=== PATIENT | female | born 1945 | race Caucasian/White ===

== ENCOUNTER 2020-07-30 09:12 | Emergency (ER) | payer MEDICARE ==
[~2020-07-30] VITALS: Ht 152.4 cm; Wt 79.4 kg
[2020-07-30 09:53] VITALS: BP 128/71
[2020-07-30 10:59] LABS: Basophils # (auto) 0.1 10 ^3/uL (0-0.2); Basophils % (auto) 0.6 % (0.0-2.0); Eosinophils # (auto) 0.1 10 ^3/uL (0-0.8); Eosinophils % (auto) 1.5 % (0.0-7.0); Hematocrit 42.9 % (36.0-46.0); Lymphocytes # (auto) 2.2 10 ^3/uL (0.4-5.4); Lymphocytes % (auto) 26.1 % (10.0-50.0); Mean Corpuscular Hemoglobin 29.9 pg (28.0-32.0); Mean Corpuscular Hgb Conc. 32.6 g/dL (32.0-36.0); Mean Corpuscular Volume 91.5 fL (80.0-100.0); Monocytes # (auto) 0.7 10 ^3/uL (0-1.3); Monocytes % (auto) 8.3 % (0.0-12.0); Neutrophils # (auto) 5.3 10 ^3/uL (1.6-8.6); Neutrophils % (auto) 63.5 % (37.0-80.0); Nucleated Red Blood Cells % 0.1 %; Platelet Count (auto) 292 10^3/uL (140-450); Red Blood Cells 4.68 10^6/uL (4.0-5.20); Red Cell Distribution Width 13.8 % (11.8-14.3); White Blood Cell 8.3 10^3/uL (4.4-10.8)
[2020-07-30 11:12] LABS: Calcium 9.4 mg/dL (8.5-10.1); Potassium 3.8 mmol/L (3.5-5.1)
[2020-07-30 11:15] LABS: BUN/Creatinine Ratio 17.2; Bilirubin, Total 0.3 mg/dL (0.2-1.0); Total Protein 6.9 g/dL (6.4-8.2)
[2020-07-30] MEDS ORDERED: NOREPINEPHRINE 8 MG/250ML KIT 250 ML IV ONE (15:14)
== END 2020-07-30 12:34 | disposition home or self-care (01) ==
LOC: ER 09:12
DX: T50.901A Poisoning by unspecified drugs, medicaments and biological substances, accidental (unintentional), initial encounter (principal); J18.9 Pneumonia, unspecified organism; E44.1 Mild protein-calorie malnutrition; Z68.34 Body mass index [BMI] 34.0-34.9, adult; Y92.89 Other specified places as the place of occurrence of the external cause
CPT/HCPCS: 36415; 71045; 80053; 85025

== ENCOUNTER 2020-08-04 10:20 | Inpatient (IN) | payer MEDICARE ==
[~2020-08-04] VITALS: Ht 152.4 cm; Wt 79.3 kg
[2020-08-04 11:10] LABS: Basophils # (auto) 0.1 10 ^3/uL (0-0.2); Basophils % (auto) 0.6 % (0.0-2.0); Eosinophils # (auto) 0.1 10 ^3/uL (0-0.8); Eosinophils % (auto) 1.5 % (0.0-7.0); Hematocrit 41.4 % (36.0-46.0); Hemoglobin 13.7 g/dL (12.2-16.2); Lymphocytes # (auto) 2.4 10 ^3/uL (0.4-5.4); Lymphocytes % (auto) 27.2 % (10.0-50.0); Mean Corpuscular Hemoglobin 30.6 pg (28.0-32.0); Mean Corpuscular Hgb Conc. 33.1 g/dL (32.0-36.0); Mean Corpuscular Volume 92.3 fL (80.0-100.0); Monocytes # (auto) 0.7 10 ^3/uL (0-1.3); Monocytes % (auto) 7.5 % (0.0-12.0); Neutrophils # (auto) 5.7 10 ^3/uL (1.6-8.6); Neutrophils % (auto) 63.2 % (37.0-80.0); Platelet Count (auto) 285 10^3/uL (140-450); Red Blood Cells 4.48 10^6/uL (4.0-5.20); Red Cell Distribution Width 13.9 % (11.8-14.3)
[2020-08-04 11:33] LABS: Albumin 3.3 g/dL (3.4-5.0); Calcium 9.3 mg/dL (8.5-10.1); Potassium 3.9 mmol/L (3.5-5.1)
[2020-08-04 11:37] LABS: BUN/Creatinine Ratio 15.2; Bilirubin, Total 0.3 mg/dL (0.2-1.0); Total Protein 7.2 g/dL (6.4-8.2)
[2020-08-04 13:58] LABS: Urine Bacteria NONE SEEN /hpf (None Seen); Urine Blood Negative /uL (Negative); Urine WBC 1 /hpf (0 - 5)
[2020-08-04] MEDS ORDERED: ACETAMINOPHEN 500 MG TAB PO PRN (14:00)
[2020-08-04] MEDS ORDERED: LABETALOL HCL 5 MG/ML ML 20ML VIAL IV PRN (14:00)
[2020-08-04] MEDS ORDERED: traMADol HCL 50 MG TAB PO PRN (14:00)
[2020-08-04] MEDS ORDERED: LACTULOSE 20Gm/30ML SOLN PO PRN (14:00)
[2020-08-04] MEDS ORDERED: DEXTROSE (50%) 50ML SYRG IV PRN (14:00)
[2020-08-04] MEDS ORDERED: NITROGLYCERIN 0.4 MG SL TAB SL PRN (14:00)
[2020-08-04] MEDS ORDERED: ASPirin 81 mg TAB PO ONE (14:00)
[2020-08-04] MEDS ORDERED: MORPHINE SULF INJ 2 MG/ML SYRINGE 1ML IV PRN ×2 (14:00)
[2020-08-04] MEDS ORDERED: TEMAZEPAM 15 MG CAP PO PRN (14:00)
[2020-08-04] MEDS: SODIUM CHLORIDE 0.9% 1,000 ML IV SCH (14:27)
[2020-08-04] MEDS: ACCU-CHEK COMFORT CURVE STRIP VI SCH ×2 (17:35→22:07)
[2020-08-04] MEDS: InsuLIN REG 1unit/0.01ml Soln (100units/ml) SC SCH ×2 (17:35→22:16)
[2020-08-04] MEDS ORDERED: ATORVASTATIN 20 MG TAB PO SCH (22:00)
[2020-08-05] MEDS: SODIUM CHLORIDE 0.9% 1,000 ML IV SCH ×2 (02:30→15:05)
[2020-08-05 05:23] LABS: Cholesterol 143 mg/dL (< 200); Triglycerides 99 mg/dL (< 150)
[2020-08-05 05:26] LABS: HDL Cholesterol 57 mg/dL (40-59); LDL Cholesterol 82 mg/dL (< 100)
[2020-08-05] MEDS: ACCU-CHEK COMFORT CURVE STRIP VI SCH ×4 (08:00→22:00)
[2020-08-05] MEDS: InsuLIN REG 1unit/0.01ml Soln (100units/ml) SC SCH ×4 (08:07→22:54)
[2020-08-05] MEDS ORDERED: DOPamine 1600MCG/ML D5W 250 ML IV SCH (10:00)
[2020-08-05] MEDS: ASPirin 81 mg TAB PO SCH (10:51)
[2020-08-05] MEDS: ENOXAPARIN SOD 40 MG/0.4 ML SYRINGE SC SCH (10:51)
[2020-08-05] MEDS ORDERED: LORazepam 2MG/ML-1ML VIAL IV PRN (16:45)
[2020-08-05] MEDS: FAMOTIDINE 20 MG TAB PO SCH (22:53)
[2020-08-05] MEDS: ATORVASTATIN 20 MG TAB PO SCH (22:53)
[2020-08-06] MEDS: SODIUM CHLORIDE 0.9% 1,000 ML IV SCH ×2 (03:30→16:12)
[2020-08-06] MEDS: ACCU-CHEK COMFORT CURVE STRIP VI SCH ×4 (08:33→22:03)
[2020-08-06] MEDS: InsuLIN REG 1unit/0.01ml Soln (100units/ml) SC SCH ×4 (08:34→22:10)
[2020-08-06 10:37] LABS: INR 1.03 (0.9-1.15); Partial Thromboplastin Time 24.5 sec (23.0-31.2)
[2020-08-06] MEDS: ENOXAPARIN SOD 40 MG/0.4 ML SYRINGE SC SCH (11:19)
[2020-08-06] MEDS: ASPirin 81 mg TAB PO SCH (11:20)
[2020-08-06] MEDS: FAMOTIDINE 20 MG TAB PO SCH ×2 (11:20→22:00)
[2020-08-06 13:09] LABS: Folate (Folic Acid) 15.1 ng/mL (5.38-24)
[2020-08-06] MEDS ORDERED: VANCOMYCIN 1GM/250ML 250 ML IV ONE (13:15)
[2020-08-06] MEDS ORDERED: fentaNYL CITRATE 100 MCG/2 ML VL ONE (14:40)
[2020-08-06] MEDS ORDERED: diphenhdrAMINE HCL 50 MG/1 ML VL ONE (14:40)
[2020-08-06] MEDS ORDERED: VANCOMYCIN HCL 1000 MG VL ONE (14:40)
[2020-08-06] MEDS ORDERED: MIDAZOLAM HCL 1MG/1ML-2 ML VIAL ONE (14:41)
[2020-08-06] MEDS ORDERED: LIDOCAINE 2%HCL (LOCAL ANESTH.) INJ 20ML MDV ONE (14:41)
[2020-08-06] MEDS: ceFAZolin 1GM/50ML 50 ML IV SCH ×2 (16:19→23:54)
[2020-08-06] MEDS ORDERED: CYANOCOBALAMIN (B-12) 1000 MCG/1 ML VIAL IM ONE (16:45)
[2020-08-06] MEDS ORDERED: INFLUENZA QUAD 2020-2021 0.5 ML SYRG IM ONE (18:45)
--- NOTE | 2020-08-06 19:40 | NUR ---
Opening Shift Note Assumed care of patient, awake and alert. No S/S of distress/SOB or pain. Instructed on POC and to call for assist PRN. Bandage of pacemaker insertion dry and intact. Patient educated that her arm must remain in the sling for 24hrs with the ice pack. Will continue to monitor for changes Q1hr and PRN.
--- NOTE | 2020-08-06 19:53 | NUR ---
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 Patient oriented to [facility] RN primary RN, unit, room, bed, and unit policies regarding patient care and visiting hours. Patient now on continuous telemetry monitoring, tele box # 52 telemetry reading is 65 paced . All questions and concerns addressed, patient verbalized understanding. Patient stable
--- NOTE | 2020-08-06 19:57 | NUR ---
Endorsed care to Jennifer ALMENDAREZ. Patient stable vital signs stable , reports no pain , tolerating diet, alert and oriented.
[2020-08-06 20:00] VITALS: BP 146/72
[2020-08-06 22:00] VITALS: BP 146/72
[2020-08-06] MEDS: ATORVASTATIN 20 MG TAB PO SCH (22:00)
[2020-08-07] MEDS: SODIUM CHLORIDE 0.9% 1,000 ML IV SCH (04:30)
[2020-08-07 05:00] VITALS: BP 159/70
--- NOTE | 2020-08-07 05:12 | NUR ---
ASSISTED PATIENT TO BATHROOM AND BACK TO BED WITH STEADY GAIT. PATIENT HAD BM. NO S/S OF DISTRESS NOTED. DENIED DIZZINESS AND LIGHT HEADACHE. CONTINUE TO MONITOR.
[2020-08-07] MEDS: ACCU-CHEK COMFORT CURVE STRIP VI SCH ×2 (06:11→11:33)
[2020-08-07] MEDS: InsuLIN REG 1unit/0.01ml Soln (100units/ml) SC SCH ×2 (06:12→11:33)
--- NOTE | 2020-08-07 06:12 | NUR ---
ACCU-CHECK, BS 160. INSULIN GIVEN ORDERED. CONTINUE TO MONITOR.
--- NOTE | 2020-08-07 07:30 | NUR ---
Opening Shift Note Report received and Assumed care of patient, awake and alert. No S/S of distress/SOB or pain. Instructed on POC and nursing routines,dressing to left chest wall clean, dry and intact,to keep left arm in sling and no reaching over head call light within reach patient reminded instructed to call for assistance and PRN, will continue to monitor for changes Q1hr and PRN.
[2020-08-07 09:00] VITALS: BP 158/71
--- NOTE | 2020-08-07 09:15 | NUR ---
Spoke to patient regarding needing home medication list,gave authorization to call carolyne kaur re home medication list
[2020-08-07] MEDS: FAMOTIDINE 20 MG TAB PO SCH (09:17)
[2020-08-07] MEDS: ASPirin 81 mg TAB PO SCH (09:17)
[2020-08-07] MEDS: ENOXAPARIN SOD 40 MG/0.4 ML SYRINGE SC SCH (09:18)
[2020-08-07] MEDS: ceFAZolin 1GM/50ML 50 ML IV SCH (09:19)
--- NOTE | 2020-08-07 09:57 | NUR ---
Called Jessica (niece) at [phone],no pass word set up but per patient ok to speak to her since she has the list of her home medication,obtain list og home meds.
[2020-08-07] MEDS ORDERED: CYANOCOBALAMIN 500 MCG TAB PO SCH (10:00)
[2020-08-07] MEDS ORDERED: ESCI10TA PO (10:26)
[2020-08-07] MEDS ORDERED: FAMO-12 PO (10:26)
[2020-08-07] MEDS ORDERED: DABI150C5 PO (10:26)
[2020-08-07] MEDS ORDERED: GABA100C9 PO (10:26)
[2020-08-07] MEDS ORDERED: LOSA-69 PO (10:26)
[2020-08-07] MEDS ORDERED: ATOR20TA PO (10:26)
[2020-08-07] MEDS ORDERED: METO25TA5 PO (10:26)
[2020-08-07] MEDS ORDERED: METF-371 PO (10:26)
[2020-08-07] MEDS ORDERED: GLIM4TAB42 PO (10:26)
--- NOTE | 2020-08-07 12:55 | NUR ---
RETURN FROM LUNCH PER RASHI Graham (COVERING RN) PATIENT IS CLEARED FOR DISCHARGE FROM DR. YUSUF AND PHYSICAL THERAPY TO AMBULATE BEFORE DISCHARGE
[2020-08-07 13:00] VITALS: BP 127/72
--- NOTE | 2020-08-07 13:00 | NUR ---
PER DR. DELEON NO NEED TO CLEAR DISCHARGE FROM DR. FANG
--- NOTE | 2020-08-07 13:10 | NUR ---
SUN REMOVED SUN CATHETER REMOVED, 10CC SALINE REMOVED. TOLERATED WELL.
--- NOTE | 2020-08-07 13:15 | NUR ---
AMBULATED TO THE RESTROOM, PATIENT VOIDED AND HAD A BOWEL MOVEMENT.
--- NOTE | 2020-08-07 13:35 | NUR ---
AMBULATED PATIENT AMBULATED WITH PHYSICAL THERAPY AROUND NURSING STATION. NO SIGNS OF DISTRESS OR PAIN NOTED.
[2020-08-07 13:44] VITALS: BP 158/71
--- NOTE | 2020-08-07 14:19 | NUR ---
Assessment Patient is a 74-year-old female, who is alert and oriented. Patient cognitive abilities are intact. Patient stated that she can ambulate and do all ADLs independently. Patient stated that she had heart pacemaker placement on 08/06/2020. Patient stated that she lives with her son (Evert [phone]). Patient stated that she is retired and receives social security and monthly pension as income. Patient stated that she will return home post discharge. Patient stated that her son Evert will provide transportation post discharge. Patient stated that her son is her support system. Patient stated that she has completed her Advance Directive at [facility]. Discharge planning: Patient will follow up with her skin lap bonder post discharge for heart pacemaker care. Patient will resume her prior activities post discharge. Patient has no post discharge needs identified. Addendum: 08/07/20 at 1420 by KYLE NATION Amended: Links added.
--- NOTE | 2020-08-07 15:26 | NUR ---
MADE AWARE OF PATIENT DISCHARGE
[2020-08-07] MEDS ORDERED: INFLUENZA QUAD 2020-2021 0.5 ML SYRG IM ONE (15:45)
--- NOTE | 2020-08-07 16:45 | NUR ---
Discharge instructions given as ordered. Encourage to follow up with PMD as instructed. All questions and concerns addressed. Patient verbalized understanding. Medication reconciliation form completed and copy given to patient. needed vaccines,FLU VACCINE given SEE eMAR. IV removed with catheter intact X 2, pressure dressing applied,arm sling to left arm in place. Telemetry unit returned to ICU. Patient taken to vehicle via wheelchair with all personal belongings, accompanied by staff and family member waiting at the main lobby. No distress noted at time of departure.
--- NOTE | 2020-08-07 17:07 | NUR ---
EEG-ELECTROENCEPHALOGRAM COMPLETED AT BEDSIDE @ 1505.
[2020-08-07 17:20] VITALS: BP 118/62
== END 2020-08-07 17:00 | disposition home or self-care (01) | DRG 242 ==
LOC: ER 10:20 → TELE 10:21 → TELE-WESTW 08-06 17:42
PROVIDERS: ADMIT Internal Medicine; ATTEND Family Medicine
PROC: 0T9B70Z Drainage of Bladder with Drainage Device, Via Natural or Artificial Opening (ICD-10-PCS; principal; 2020-08-05)
PROC: 02HK3JZ Insertion of Pacemaker Lead into Right Ventricle, Percutaneous Approach (ICD-10-PCS; 2020-08-06)
PROC: 0JH604Z Insertion of Pacemaker, Single Chamber into Chest Subcutaneous Tissue and Fascia, Open Approach (ICD-10-PCS; 2020-08-06)
DX: I49.5 Sick sinus syndrome (principal); G93.41 Metabolic encephalopathy; E44.1 Mild protein-calorie malnutrition; D68.59 Other primary thrombophilia; I44.1 Atrioventricular block, second degree; E11.40 Type 2 diabetes mellitus with diabetic neuropathy, unspecified; I10 Essential (primary) hypertension; E11.65 Type 2 diabetes mellitus with hyperglycemia; F03.90 Unspecified dementia, unspecified severity, without behavioral disturbance, psychotic disturbance, mood disturbance, and anxiety; I48.91 Unspecified atrial fibrillation; E66.9 Obesity, unspecified; E11.21 Type 2 diabetes mellitus with diabetic nephropathy; E11.42 Type 2 diabetes mellitus with diabetic polyneuropathy; E78.00 Pure hypercholesterolemia, unspecified; F17.200 Nicotine dependence, unspecified, uncomplicated; G40.909 Epilepsy, unspecified, not intractable, without status epilepticus; I70.0 Atherosclerosis of aorta; Z68.34 Body mass index [BMI] 34.0-34.9, adult; Z79.01 Long term (current) use of anticoagulants; Z79.899 Other long term (current) drug therapy; Z82.3 Family history of stroke; Z82.49 Family history of ischemic heart disease and other diseases of the circulatory system; Z83.3 Family history of diabetes mellitus; Z86.73 Personal history of transient ischemic attack (TIA), and cerebral infarction without residual deficits; Z90.710 Acquired absence of both cervix and uterus
CPT/HCPCS: 33207; 33225; 36415; 70450; 70551; 71045; 71046; 80053; 80061; 81001; 82550; 82607; 82746; 82962; 83036; 83735; 84443; 84484; 85025; 85610; 85652; 85730; 87086; 93005; 93306; 93886; 95819; 99152; 99153; G0378; J0690; J1815; J2250

== ENCOUNTER 2020-08-22 11:31 | Inpatient (IN) | payer MEDICARE ==
[~2020-08-22] VITALS: Ht 152.4 cm; Wt 78.7 kg
[~2020-08-22 11:31] MED LIST: ATOR20TA PO; DABI150C5 PO; ESCI10TA PO; FAMO-12 PO; GABA100C9 PO; GLIM4TAB42 PO; LOSA-69 PO; METF-371 PO; METO25TA5 PO
[2020-08-22] MEDS ORDERED: ACETAMINOPHEN 325 MG TAB PO ONE (12:45)
[2020-08-22 14:43] LABS: Basophils # (auto) 0 10 ^3/uL (0-0.2); Basophils % (auto) 0.2 % (0.0-2.0); Eosinophils # (auto) 0 10 ^3/uL (0-0.8); Hematocrit 39.6 % (36.0-46.0); Hemoglobin 13.3 g/dL (12.2-16.2); Lymphocytes # (auto) 1.6 10 ^3/uL (0.4-5.4); Mean Corpuscular Hemoglobin 30.4 pg (28.0-32.0); Mean Corpuscular Hgb Conc. 33.7 g/dL (32.0-36.0); Mean Corpuscular Volume 90.2 fL (80.0-100.0); Monocytes # (auto) 1.1 10 ^3/uL (0-1.3); Monocytes % (auto) 10.9 % (0.0-12.0); Neutrophils # (auto) 7.1 10 ^3/uL (1.6-8.6); Neutrophils % (auto) 72.9 % (37.0-80.0); Platelet Count (auto) 280 10^3/uL (140-450); Red Blood Cells 4.39 10^6/uL (4.0-5.20); Red Cell Distribution Width 13.4 % (11.8-14.3); White Blood Cell 9.7 10^3/uL (4.4-10.8)
[2020-08-22 15:08] LABS: Lactic Acid w/Reflex 2.4 mmol/L (0.4-2.0)
[2020-08-22 15:09] LABS: INR 1.3 (0.9-1.15); Partial Thromboplastin Time 46.6 sec (23.0-31.2)
[2020-08-22 15:20] LABS: Alanine Aminotransferase 37 U/L (13-56); Albumin 2.8 g/dL (3.4-5.0); Anion Gap 5 (5-15); Aspartate Aminotransferase 45 U/L (15-37); BUN/Creatinine Ratio 23.1; Blood Urea Nitrogen 18 mg/dL (7-18); Calcium 9.4 mg/dL (8.5-10.1); Carbon Dioxide 27 mmol/L (21-32); Chloride 107 mmol/L (98-107); GFR African American 92 mL/min; GFR Non-African American 76 mL/min; Magnesium 1.7 mg/dL (1.6-2.6); Potassium 3.6 mmol/L (3.5-5.1); Sodium 139 mmol/L (136-145)
[2020-08-22 15:25] LABS: Alkaline Phosphatase 52 U/L (45-117); Bilirubin, Total 0.5 mg/dL (0.2-1.0); Total Protein 7.3 g/dL (6.4-8.2)
[2020-08-22 15:46] LABS: Glucose 30 mg/dL (74-106)
[2020-08-22] MEDS ORDERED: DEXTROSE (50%) 50ML SYRG IV ONE (16:00)
[2020-08-22] MEDS ORDERED: NITROGLYCERIN 0.4 MG SL TAB SL PRN (17:45)
[2020-08-22] MEDS ORDERED: MORPHINE SULF INJ 2 MG/ML SYRINGE 1ML IV PRN (17:45)
[2020-08-22] MEDS: D5W/SOD CHLO 0.9% 1,000 ML IV SCH (18:56)
[2020-08-22] MEDS ORDERED: GABAPENTIN 100 MG CAP PO PRN (19:00)
[2020-08-22] MEDS ORDERED: ASCO500T11 PO (19:05)
[2020-08-22] MEDS ORDERED: MULT1TAB69 PO (19:05)
[2020-08-22] MEDS ORDERED: CHOL20007 PO (19:05)
[2020-08-22] MEDS ORDERED: ZINC220C8 PO (19:05)
[2020-08-22] MEDS ORDERED: B-CO1TAB8 PO (19:05)
[2020-08-22] MEDS ORDERED: DEXTROSE (50%) 50ML SYRG IV PRN (19:30)
[2020-08-22 19:35] VITALS: BP 90/35
[2020-08-22 21:29] LABS: Basophils # (auto) 0 10 ^3/uL (0-0.2); Basophils % (auto) 0.2 % (0.0-2.0); Eosinophils # (auto) 0 10 ^3/uL (0-0.8); Hematocrit 39.8 % (36.0-46.0); Hemoglobin 13.3 g/dL (12.2-16.2); Lymphocytes # (auto) 1.6 10 ^3/uL (0.4-5.4); Lymphocytes % (auto) 17.8 % (10.0-50.0); Mean Corpuscular Hemoglobin 30.2 pg (28.0-32.0); Mean Corpuscular Hgb Conc. 33.3 g/dL (32.0-36.0); Mean Corpuscular Volume 90.6 fL (80.0-100.0); Monocytes # (auto) 1.1 10 ^3/uL (0-1.3); Neutrophils # (auto) 6.3 10 ^3/uL (1.6-8.6); Platelet Count (auto) 274 10^3/uL (140-450); Red Blood Cells 4.39 10^6/uL (4.0-5.20); Red Cell Distribution Width 13.6 % (11.8-14.3)
[2020-08-22 21:57] LABS: Albumin 2.9 g/dL (3.4-5.0); BUN/Creatinine Ratio 21.6; Calcium 9.4 mg/dL (8.5-10.1); Magnesium 1.9 mg/dL (1.6-2.6); Potassium 3.5 mmol/L (3.5-5.1); Total Protein 7.6 g/dL (6.4-8.2)
[2020-08-22 22:11] LABS: Bilirubin, Total 0.4 mg/dL (0.2-1.0); CRP High Sensitivity 4.15 mg/dL (< 0.3)
[2020-08-22] MEDS: APIXABAN 2.5 MG TAB PO SCH (22:39)
[2020-08-22] MEDS: DOXYCYCLINE 100MG/250ML 250 ML IV SCH (22:39)
[2020-08-22] MEDS: FAMOTIDINE (10MG/ML) 2ML VL IV SCH (22:39)
[2020-08-22] MEDS: ACCU-CHEK COMFORT CURVE STRIP VI SCH (22:40)
[2020-08-22] MEDS: METOPROLOL TARTRATE 25 MG TAB PO SCH (22:40)
[2020-08-22] MEDS: InsuLIN REG 1unit/0.01ml Soln (100units/ml) SC SCH (22:40)
[2020-08-22] MEDS: ATORVASTATIN 20 MG TAB PO SCH (22:40)
[2020-08-22 22:47] VITALS: BP 125/97
[2020-08-22] MEDS: ALBUTEROL SULF HFA 90MCG INH 200DOSE IN SCH (22:51)
[2020-08-22] MEDS: BUDESONIDE (INHALATION) 180 MCG IH IN SCH (22:51)
[2020-08-23] MEDS: ACETAMINOPHEN 500 MG TAB PO PRN ×2 (04:54→21:23)
[2020-08-23 05:00] VITALS: BP 114/46
[2020-08-23] MEDS: ACCU-CHEK COMFORT CURVE STRIP VI SCH ×3 (06:45→19:11)
[2020-08-23] MEDS: InsuLIN REG 1unit/0.01ml Soln (100units/ml) SC SCH ×3 (06:45→19:12)
[2020-08-23] MEDS: D5W/SOD CHLO 0.9% 1,000 ML IV SCH (06:46)
[2020-08-23] MEDS: ALBUTEROL SULF HFA 90MCG INH 200DOSE IN SCH ×3 (06:57→21:56)
[2020-08-23] MEDS: BUDESONIDE (INHALATION) 180 MCG IH IN SCH ×2 (06:57→21:56)
[2020-08-23 07:58] LABS: Basophils # (auto) 0 10 ^3/uL (0-0.2); Basophils % (auto) 0.1 % (0.0-2.0); Eosinophils # (auto) 0 10 ^3/uL (0-0.8); Eosinophils % (auto) 0.1 % (0.0-7.0); Hematocrit 36.7 % (36.0-46.0); Hemoglobin 12.3 g/dL (12.2-16.2); Lymphocytes # (auto) 1.2 10 ^3/uL (0.4-5.4); Lymphocytes % (auto) 18.7 % (10.0-50.0); Mean Corpuscular Hemoglobin 30.1 pg (28.0-32.0); Mean Corpuscular Hgb Conc. 33.5 g/dL (32.0-36.0); Monocytes # (auto) 0.8 10 ^3/uL (0-1.3); Monocytes % (auto) 12.9 % (0.0-12.0); Neutrophils # (auto) 4.4 10 ^3/uL (1.6-8.6); Neutrophils % (auto) 68.2 % (37.0-80.0); Nucleated Red Blood Cells % 0.1 %; Platelet Count (auto) 247 10^3/uL (140-450); Red Blood Cells 4.08 10^6/uL (4.0-5.20); Red Cell Distribution Width 13.1 % (11.8-14.3); White Blood Cell 6.5 10^3/uL (4.4-10.8)
[2020-08-23 08:31] LABS: Albumin 2.4 g/dL (3.4-5.0); Calcium 8.7 mg/dL (8.5-10.1); Potassium 3.4 mmol/L (3.5-5.1)
[2020-08-23 08:36] LABS: BUN/Creatinine Ratio 18.7; Bilirubin, Total 0.4 mg/dL (0.2-1.0); Total Protein 6.4 g/dL (6.4-8.2)
[2020-08-23 09:00] VITALS: BP 147/57
[2020-08-23] MEDS ORDERED: DexAMETHasone SOD PHOS 10MG/1ML VIAL INJ IV SCH (10:00)
[2020-08-23] MEDS ORDERED: cefTRIAXone 1GM/50ML D5W 50 ML IV ONE (10:30)
[2020-08-23] MEDS: DOXYCYCLINE 100MG/250ML 250 ML IV SCH (12:34)
[2020-08-23] MEDS: LOSARTAN POTASSIUM 50 MG TAB PO SCH (12:35)
[2020-08-23] MEDS: CITALOPRAM HYDROBR 20 MG TAB PO SCH (12:35)
[2020-08-23] MEDS: ZINC SULFATE 220mg CAP or TAB PO SCH (12:35)
[2020-08-23] MEDS: APIXABAN 2.5 MG TAB PO SCH (12:36)
[2020-08-23] MEDS: MULTIPLE VITAMINS W/ MINERALS TAB PO SCH (12:36)
[2020-08-23] MEDS: METOPROLOL TARTRATE 25 MG TAB PO SCH (12:36)
[2020-08-23] MEDS: ASCORBIC ACID 1,000 MG TAB PO SCH (12:37)
[2020-08-23 12:52] VITALS: BP 128/60
[2020-08-23 17:00] VITALS: BP 130/51
[2020-08-23] MEDS ORDERED: REMDESIVIR 200 MG in NS 210ml LOADING DOSE ADULT IV ONE (20:00)
[2020-08-23] MEDS ORDERED: REMDESIVIR 100mg in NS 230ml DAILYx4DAYS (NO VENT) IV SCH (20:00)
[2020-08-23 22:00] VITALS: BP 131/64
[2020-08-24] MEDS: METOPROLOL TARTRATE 25 MG TAB PO SCH ×2 (00:42→10:49)
[2020-08-24] MEDS: FAMOTIDINE (10MG/ML) 2ML VL IV SCH (00:42)
[2020-08-24] MEDS: DOXYCYCLINE 100MG/250ML 250 ML IV SCH ×2 (00:43→09:49)
[2020-08-24] MEDS: APIXABAN 2.5 MG TAB PO SCH ×2 (00:44→09:58)
[2020-08-24] MEDS: ATORVASTATIN 20 MG TAB PO SCH (00:44)
[2020-08-24] MEDS: ACCU-CHEK COMFORT CURVE STRIP VI SCH ×4 (00:45→16:49)
[2020-08-24] MEDS: InsuLIN REG 1unit/0.01ml Soln (100units/ml) SC SCH ×4 (00:45→16:49)
[2020-08-24 05:00] VITALS: BP 114/69
[2020-08-24] MEDS: ALBUTEROL SULF HFA 90MCG INH 200DOSE IN SCH ×3 (06:22→22:16)
[2020-08-24] MEDS: BUDESONIDE (INHALATION) 180 MCG IH IN SCH ×2 (06:22→22:16)
[2020-08-24 09:00] VITALS: BP 162/77
[2020-08-24] MEDS: cefTRIAXone 1GM/50ML D5W 50 ML IV SCH (09:49)
[2020-08-24] MEDS: FUROSEMIDE 40 MG/4 ML VIAL IV SCH (09:49)
[2020-08-24] MEDS: ZINC SULFATE 220mg CAP or TAB PO SCH (09:50)
[2020-08-24] MEDS: CITALOPRAM HYDROBR 20 MG TAB PO SCH (09:52)
[2020-08-24] MEDS: LOSARTAN POTASSIUM 50 MG TAB PO SCH (09:57)
[2020-08-24] MEDS: MULTIPLE VITAMINS W/ MINERALS TAB PO SCH (09:58)
[2020-08-24] MEDS: ASCORBIC ACID 1,000 MG TAB PO SCH (09:58)
[2020-08-24] MEDS ORDERED: POTASSIUM CHL 20 Meq TABLET PO ONE (11:30)
[2020-08-24 11:48] LABS: Albumin 2.6 g/dL (3.4-5.0); Potassium 3.4 mmol/L (3.5-5.1)
[2020-08-24 11:54] LABS: BUN/Creatinine Ratio 16.3; Bilirubin, Total 0.4 mg/dL (0.2-1.0); Total Protein 7.4 g/dL (6.4-8.2)
[2020-08-24 12:53] VITALS: BP 127/66
[2020-08-24 16:51] VITALS: BP 120/55
[2020-08-24] MEDS: REMDESIVIR 100mg in NS 230ml DAILYx4DAYS (NO VENT) IV SCH (20:45)
[2020-08-24 22:00] VITALS: BP 114/77
[2020-08-25] VITALS (9 sets, daily range): BP systolic 102–156; BP diastolic 55–70
[2020-08-25] MEDS: InsuLIN REG 1unit/0.01ml Soln (100units/ml) SC SCH ×5 (00:07→22:46)
[2020-08-25] MEDS: APIXABAN 2.5 MG TAB PO SCH ×3 (00:09→22:16)
[2020-08-25] MEDS: FAMOTIDINE (10MG/ML) 2ML VL IV SCH ×2 (00:09→22:16)
[2020-08-25] MEDS: ACCU-CHEK COMFORT CURVE STRIP VI SCH ×5 (00:10→22:45)
[2020-08-25] MEDS: ATORVASTATIN 20 MG TAB PO SCH ×2 (00:10→22:17)
[2020-08-25] MEDS: METOPROLOL TARTRATE 25 MG TAB PO SCH ×3 (00:13→22:32)
[2020-08-25] MEDS: DOXYCYCLINE 100MG/250ML 250 ML IV SCH ×3 (00:43→22:17)
[2020-08-25] MEDS: BUDESONIDE (INHALATION) 180 MCG IH IN SCH ×2 (05:59→21:39)
[2020-08-25] MEDS: ALBUTEROL SULF HFA 90MCG INH 200DOSE IN SCH ×3 (05:59→21:39)
[2020-08-25 07:11] LABS: Basophils # (auto) 0 10 ^3/uL (0-0.2); Basophils % (auto) 0.2 % (0.0-2.0); Eosinophils # (auto) 0 10 ^3/uL (0-0.8); Eosinophils % (auto) 0.3 % (0.0-7.0); Hematocrit 35.7 % (36.0-46.0); Hemoglobin 12.2 g/dL (12.2-16.2); Lymphocytes # (auto) 1.5 10 ^3/uL (0.4-5.4); Mean Corpuscular Hemoglobin 31.4 pg (28.0-32.0); Mean Corpuscular Hgb Conc. 34.3 g/dL (32.0-36.0); Mean Corpuscular Volume 91.5 fL (80.0-100.0); Monocytes # (auto) 0.9 10 ^3/uL (0-1.3); Monocytes % (auto) 12.1 % (0.0-12.0); Neutrophils # (auto) 5.1 10 ^3/uL (1.6-8.6); Neutrophils % (auto) 67.4 % (37.0-80.0); Nucleated Red Blood Cells % 0.1 %; Platelet Count (auto) 306 10^3/uL (140-450); Red Cell Distribution Width 13.3 % (11.8-14.3); White Blood Cell 7.5 10^3/uL (4.4-10.8)
[2020-08-25 07:27] LABS: Potassium 3.5 mmol/L (3.5-5.1)
[2020-08-25 07:49] LABS: Albumin 2.3 g/dL (3.4-5.0); BUN/Creatinine Ratio 21.8; Bilirubin, Total 0.4 mg/dL (0.2-1.0); CRP High Sensitivity 7.36 mg/dL (< 0.3); Calcium 8.7 mg/dL (8.5-10.1); Total Protein 6.7 g/dL (6.4-8.2)
[2020-08-25] MEDS: cefTRIAXone 1GM/50ML D5W 50 ML IV SCH (09:19)
[2020-08-25] MEDS: LOSARTAN POTASSIUM 50 MG TAB PO SCH (09:20)
[2020-08-25] MEDS: FUROSEMIDE 40 MG/4 ML VIAL IV SCH (09:20)
[2020-08-25] MEDS: CITALOPRAM HYDROBR 20 MG TAB PO SCH (09:28)
[2020-08-25] MEDS: ZINC SULFATE 220mg CAP or TAB PO SCH (09:28)
[2020-08-25] MEDS: ASCORBIC ACID 1,000 MG TAB PO SCH (09:29)
[2020-08-25] MEDS: MULTIPLE VITAMINS W/ MINERALS TAB PO SCH (09:29)
[2020-08-25] MEDS: REMDESIVIR 100mg in NS 230ml DAILYx4DAYS (NO VENT) IV SCH (20:29)
[2020-08-26] VITALS (7 sets, daily range): BP systolic 130–149; BP diastolic 57–74
[2020-08-26] MEDS: ACCU-CHEK COMFORT CURVE STRIP VI SCH ×4 (05:36→22:36)
[2020-08-26] MEDS: InsuLIN REG 1unit/0.01ml Soln (100units/ml) SC SCH ×4 (05:38→22:46)
[2020-08-26] MEDS: BUDESONIDE (INHALATION) 180 MCG IH IN SCH ×2 (05:56→20:49)
[2020-08-26] MEDS: ALBUTEROL SULF HFA 90MCG INH 200DOSE IN SCH ×3 (05:56→20:49)
[2020-08-26 07:35] LABS: Basophils # (auto) 0 10 ^3/uL (0-0.2); Basophils % (auto) 0.5 % (0.0-2.0); Eosinophils # (auto) 0.1 10 ^3/uL (0-0.8); Hematocrit 36.9 % (36.0-46.0); Hemoglobin 11.9 g/dL (12.2-16.2); Lymphocytes # (auto) 1.3 10 ^3/uL (0.4-5.4); Lymphocytes % (auto) 19.1 % (10.0-50.0); Mean Corpuscular Hemoglobin 29.7 pg (28.0-32.0); Mean Corpuscular Hgb Conc. 32.2 g/dL (32.0-36.0); Mean Corpuscular Volume 92.2 fL (80.0-100.0); Monocytes # (auto) 0.9 10 ^3/uL (0-1.3); Monocytes % (auto) 12.2 % (0.0-12.0); Neutrophils # (auto) 4.7 10 ^3/uL (1.6-8.6); Neutrophils % (auto) 67.2 % (37.0-80.0); Platelet Count (auto) 327 10^3/uL (140-450); Red Cell Distribution Width 13.4 % (11.8-14.3)
[2020-08-26 08:09] LABS: Albumin 2.2 g/dL (3.4-5.0); BUN/Creatinine Ratio 18.3; Bilirubin, Total 0.5 mg/dL (0.2-1.0); Calcium 8.5 mg/dL (8.5-10.1); Potassium 3.5 mmol/L (3.5-5.1); Total Protein 6.4 g/dL (6.4-8.2)
[2020-08-26] MEDS: cefTRIAXone 1GM/50ML D5W 50 ML IV SCH (09:34)
[2020-08-26] MEDS: DOXYCYCLINE 100MG/250ML 250 ML IV SCH ×2 (09:35→22:35)
[2020-08-26] MEDS: CITALOPRAM HYDROBR 20 MG TAB PO SCH (09:35)
[2020-08-26] MEDS: FUROSEMIDE 40 MG/4 ML VIAL IV SCH (09:35)
[2020-08-26] MEDS: MULTIPLE VITAMINS W/ MINERALS TAB PO SCH (09:36)
[2020-08-26] MEDS: LOSARTAN POTASSIUM 50 MG TAB PO SCH (09:36)
[2020-08-26] MEDS: ASCORBIC ACID 1,000 MG TAB PO SCH (09:36)
[2020-08-26] MEDS: APIXABAN 2.5 MG TAB PO SCH ×2 (09:36→22:35)
[2020-08-26] MEDS: ZINC SULFATE 220mg CAP or TAB PO SCH (09:37)
[2020-08-26] MEDS: METOPROLOL TARTRATE 25 MG TAB PO SCH ×2 (09:37→22:36)
[2020-08-26] MEDS ORDERED: POTASSIUM CHL 20 Meq TABLET PO ONE (12:00)
[2020-08-26] MEDS: REMDESIVIR 100mg in NS 230ml DAILYx4DAYS (NO VENT) IV SCH (20:22)
[2020-08-26] MEDS: ATORVASTATIN 20 MG TAB PO SCH (22:35)
[2020-08-26] MEDS: FAMOTIDINE (10MG/ML) 2ML VL IV SCH (22:35)
[2020-08-27] VITALS (7 sets, daily range): BP systolic 103–159; BP diastolic 42–88
[2020-08-27] MEDS: ALBUTEROL SULF HFA 90MCG INH 200DOSE IN SCH ×3 (06:00→14:55)
[2020-08-27] MEDS: ACCU-CHEK COMFORT CURVE STRIP VI SCH ×2 (06:02→11:34)
[2020-08-27] MEDS: InsuLIN REG 1unit/0.01ml Soln (100units/ml) SC SCH ×2 (06:03→11:54)
[2020-08-27] MEDS: BUDESONIDE (INHALATION) 180 MCG IH IN SCH ×2 (06:11→06:14)
[2020-08-27 06:36] LABS: Potassium 3.4 mmol/L (3.5-5.1)
[2020-08-27 06:47] LABS: Bilirubin, Total 0.5 mg/dL (0.2-1.0); Calcium 8.6 mg/dL (8.5-10.1); Total Protein 6.1 g/dL (6.4-8.2)
[2020-08-27] MEDS: cefTRIAXone 1GM/50ML D5W 50 ML IV SCH (08:33)
[2020-08-27] MEDS ORDERED: POTASSIUM CHL 20 Meq TABLET PO ONE (11:15)
[2020-08-27] MEDS: APIXABAN 2.5 MG TAB PO SCH (11:23)
[2020-08-27] MEDS: CITALOPRAM HYDROBR 20 MG TAB PO SCH (11:23)
[2020-08-27] MEDS: DOXYCYCLINE 100MG/250ML 250 ML IV SCH (11:23)
[2020-08-27] MEDS: ZINC SULFATE 220mg CAP or TAB PO SCH (11:24)
[2020-08-27] MEDS: MULTIPLE VITAMINS W/ MINERALS TAB PO SCH (11:25)
[2020-08-27] MEDS: ASCORBIC ACID 1,000 MG TAB PO SCH (11:25)
[2020-08-27] MEDS: FUROSEMIDE 40 MG/4 ML VIAL IV SCH (11:33)
[2020-08-27] MEDS: LOSARTAN POTASSIUM 50 MG TAB PO SCH (11:34)
[2020-08-27] MEDS: METOPROLOL TARTRATE 25 MG TAB PO SCH (11:34)
[2020-08-27] MEDS ORDERED: REMDESIVIR 100mg in NS 230ml DAILYx4DAYS (NO VENT) IV SCH (15:00)
== END 2020-08-27 18:43 | disposition home or self-care (01) | DRG 177 ==
LOC: ER 11:31 → TELE 11:32 → TELE-E-ADS 21:05 → TELE-EAST 08-24 23:00
PROVIDERS: ADMIT Hospitalist; ATTEND Internal Medicine
PROC: XW033E5 Introduction of Remdesivir Anti-infective into Peripheral Vein, Percutaneous Approach, New Technology Group 5 (ICD-10-PCS; principal; 2020-08-23)
DX: U07.1 COVID-19 (principal); J12.89 Other viral pneumonia; E43 Unspecified severe protein-calorie malnutrition; D68.4 Acquired coagulation factor deficiency; E11.649 Type 2 diabetes mellitus with hypoglycemia without coma; E86.0 Dehydration; I48.91 Unspecified atrial fibrillation; F03.90 Unspecified dementia, unspecified severity, without behavioral disturbance, psychotic disturbance, mood disturbance, and anxiety; E66.9 Obesity, unspecified; E78.00 Pure hypercholesterolemia, unspecified; E78.5 Hyperlipidemia, unspecified; I10 Essential (primary) hypertension; Z68.33 Body mass index [BMI] 33.0-33.9, adult; Z79.84 Long term (current) use of oral hypoglycemic drugs; Z79.899 Other long term (current) drug therapy; Z86.73 Personal history of transient ischemic attack (TIA), and cerebral infarction without residual deficits; Z95.0 Presence of cardiac pacemaker; Z79.01 Long term (current) use of anticoagulants
CPT/HCPCS: 36415; 36600; 71045; 80053; 82728; 82805; 82962; 83605; 83615; 83735; 84443; 84484; 85025; 85379; 85610; 85730; 86141; 86850; 86900; 86901; 87040; 87426; 93005; 94640; 96374; 97163; G0378; J0696; J1815; J3490; J7042

== ENCOUNTER 2020-09-13 11:37 | Emergency (ER) | payer MEDICARE ==
[~2020-09-13] VITALS: Ht 152.4 cm; Wt 76.7 kg
[~2020-09-13 11:37] MED LIST changes: +ASCO500T11 PO; +ATO40T PO; +B-CO1TAB8 PO; +CHOL20007 PO; +DABI75CA6 PO; +MULT1TAB69 PO; +ZINC220C8 PO
[2020-09-13 14:29] VITALS: BP 131/111
== END 2020-09-13 14:52 | disposition home or self-care (01) ==
LOC: ER 11:37
DX: J44.9 Chronic obstructive pulmonary disease, unspecified (principal); Z20.828 Contact with and (suspected) exposure to other viral communicable diseases
CPT/HCPCS: 36415; 71045; 87426; 99284; C9803; U0003